=== PATIENT | male | born 1985 | race Native Hawaiian/Other Pacific Islander ===

== ENCOUNTER 2022-03-17 10:16 | Emergency (ER) | payer OTHER ==
[~2022-03-17] VITALS: Ht 165.1 cm; Wt 79.7 kg
[2022-03-17] MEDS ORDERED: SERT25TA21 (10:33)
[2022-03-17] MEDS ORDERED: NAPR-885 (10:33)
[2022-03-17] MEDS ORDERED: OMEP20TA2 (10:33)
[2022-03-17] MEDS ORDERED: ACET-683 PO (10:33)
[2022-03-17 13:15] VITALS: BP 135/82
== END 2022-03-17 13:17 | disposition home or self-care (01) ==
LOC: M ED 10:16
DX: R45.1 Restlessness and agitation (principal); T43.225A Adverse effect of selective serotonin reuptake inhibitors, initial encounter; R51.9 Headache, unspecified; F41.9 Anxiety disorder, unspecified; Z88.5 Allergy status to narcotic agent; Z79.52 Long term (current) use of systemic steroids; Z79.899 Other long term (current) drug therapy

== ENCOUNTER → 2022-03-17 | Outpatient (CLI) | payer OTHER ==
[~2022-03-17] MED LIST: ACET-683 PO; NAPR-885; OMEP20TA2; SERT25TA21
== END ==
LOC: M RAD 13:21
PROVIDERS: ATTEND Internal Medicine
DX: M54.9 Dorsalgia, unspecified (principal); R10.816 Epigastric abdominal tenderness; Z97.8 Presence of other specified devices

== ENCOUNTER → 2022-06-13 | Outpatient (CLI) | payer OTHER | LOC: M PLAIMG 06:59 | PROVIDERS: ATTEND Physician Assistant | DX: M54.2 Cervicalgia (principal); R51.9 Headache, unspecified ==